=== PATIENT | male | born 1970 | race Caucasian/White ===

== ENCOUNTER 2017-03-26 10:38 | Day surgery (SDC) | payer MEDICAID ==
[2017-03-26] MEDS ORDERED: LIDOCAINE 1% 2 ML INJ ONE (10:47)
[2017-03-26] MEDS ORDERED: MIDAZOLAM 2 MG/2 ML VIAL ONE (10:58)
[2017-03-26] MEDS ORDERED: fentaNYL 100 MCG/2 ML INJ ONE ×2 (10:59→11:49)
[2017-03-26] MEDS ORDERED: PROPOFOL/EMULSION 500 MG/50 ML BOTTLE IV ONE (11:49)
[2017-03-26] MEDS ORDERED: LIDOCAINE 2% 100 MG/5 ML SYR ONE (11:50)
--- NOTE | 2017-03-26 14:54 | GPN ---
[f rep st] PROCEDURE NOTE PROCEDURE: Pouchoscopy and biopsy and dilation procedure. INDICATION: 1. History of pouchitis with increased symptoms. 2. History of anal stricture with increased symptoms. PREOPERATIVE DIAGNOSES: 1. Rule out pouchitis. 2. Rule out anal stricture. POSTOPERATIVE DIAGNOSES: 1. Moderate pouchitis that is improved from previous exams. 2. A little bit more inflammation of the proximal pouch and the distal pouch. 3. There are some inflamed nodules likely related to surgical kaykay or other foreign material sta tus post biopsy. INFORMED CONSENT: I discussed with the patient regarding the procedure, alternatives, benefits and risks including bleeding, perforation, infection, risk of medication. Informed consent was signed a nd witnessed. SEDATION: General anesthesia by Dr. Jacob Villareal. DESCRIPTION OF PROCEDURE: After adequate sedation, patient remained in left lateral decubitus posit ion. A visual and digital anorectal examination was performed. An anal stricture was noted on digi luis f examination and dilated somewhat with my finger. I was able to insert the endoscope through his anus into his pouch. I was able to follow the small bowel beyond his pouch, which was normal. The re was inflammation in both proximal and distal areas of the pouch. The proximal area was slightly more than the distal area. He did have some inflamed nodules around the anastomosis. I think this is probably related to sutures underneath. Overall, this inflammation was less than it had been pre viously. I would describe it as mild to moderate. His anal stricture was dilated with a colonic TT S balloon. We used 2 balloons measuring 10, 11, 12, then 12, 13.5 and 15 mm. The final size was 15 mm. The endoscope was completely withdrawn, confirming the above findings. The patient tolerated the procedure well and was transferred to the recovery room in satisfactory condition. IMPRESSION: 1. Mild to moderate pouchitis. 2. Inflamed nodules. 3. Anal stricture, status post dilation. RECOMMENDATIONS: 1. Follow up pathology. 2. Determine repeat pouchoscopy based on pathology. 3. Start Cipro 500 mg p.o. twice daily and at least use for 2 weeks if not longer. 4. Continue other medications. 5. Follow up with myself as previously scheduled. 6. Follow up with primary care physician as scheduled. Thank you for allowing us to participate in this patient's healthcare. Do not hesitate to contact catherine li for any questions. /[id number]/MODL
== END 2017-03-26 13:25 | disposition home or self-care (01) ==
LOC: FSGY 10:38
PROVIDERS: ATTEND Internal Medicine Gastroenterology
PROC: 0DBN8ZX Excision of Sigmoid Colon, Via Natural or Artificial Opening Endoscopic, Diagnostic (ICD-10-PCS; principal; 2017-03-26 11:30)
DX: K91.850 Pouchitis (principal); K62.4 Stenosis of anus and rectum
CPT/HCPCS: 45331; C1726; J2001; J2250; J2704; J3010